=== PATIENT | male | born 1940 | race Caucasian/White ===

== ENCOUNTER 2017-03-02 15:21 | Inpatient (IN) | payer MEDICARE, OTHER ==
[~2017-03-02] VITALS: Ht 165.1 cm; Wt 90.7 kg
[2017-03-02] MEDS ORDERED: IPRATROPIUM NEB FS 0.5 MG/2.5 ML AMPUL.NEB NEB ONE (15:30)
[2017-03-02] MEDS ORDERED: ALBUTEROL FS 2.5 MG/3 ML VIAL.NEB CONTNEB ONE (15:30)
[2017-03-02] MEDS ORDERED: methylPREDNISolone SOD SUCC 125 MG/2ML VIAL IV ONE (15:30)
--- NOTE | 2017-03-02 15:30 | NUR ---
PATIENT BIB RA FROM HOME C/O WORSENING SOB SINCE THIS AM. RECEIVED BREATHING TREATMENT ON ROUTE. PATIENT IS A/OX 4. SHORT OF BREATH, WHEEZING HEARD ON AUSCULTATION. PATIENTS VITALS REMAIN STABLE, O2 SATURATION 96% CURRENTLY. SAFETY AND COMFORT MEASURES IN PLACE. AWAITING MD ORDERS.
[2017-03-02] MEDS ORDERED: methylPREDNISolone SOD SUCC 125 MG/2ML VIAL ONE (15:43)
--- NOTE | 2017-03-02 15:45 | NUR ---
NEW IV STARTED RIGHT WRIST, 20 G.
[2017-03-02] MEDS ORDERED: IPRATROPIUM NEB FS 0.5 MG/2.5 ML AMPUL.NEB ONE (15:50)
[2017-03-02] MEDS ORDERED: ALBUTEROL FS 2.5 MG/3 ML VIAL.NEB ONE (15:50)
[2017-03-02 15:56] LABS: CALCIUM, SERUM 8.9 mg/dL (8.5-10.1); CARBON DIOXIDE 31 mmol/L (21-32); CHLORIDE 98 mmol/L (98-107); GLUCOSE 93 mg/dL (74-106); POTASSIUM 4.3 mmol/L (3.5-5.1); SODIUM SERUM 135 mmol/L (136-145); UREA NITROGEN, BLOOD 10 mg/dL (7-18)
[2017-03-02 16:02] LABS: ALANINE AMINOTRANSFERASE 20 U/L (12-78); ALBUMIN 3.8 g/dL (3.4-5.0); ALKALINE PHOSPHATASE 82 U/L (46-116); ASPARTATE AMINOTRANSFERASE 24 U/L (15-37); BILIRUBIN,DIRECT 0.1 mg/dL (0.0-0.2); BILIRUBIN,TOTAL 0.5 mg/dL (0.2-1.0); TOTAL PROTEIN, SERUM 7.7 g/dL (6.4-8.2)
[2017-03-02] MEDS ORDERED: Magnesium 1GM/D5W 100ML PREMIX 200 ML IV ONE ×2 (16:29→16:35)
--- NOTE | 2017-03-02 16:30 | NUR ---
PT GOING TO TELE 308-2
[2017-03-02 16:34] LABS: BASOPHILS # (AUTO) 0.1 /CMM (0.0-0.2); BASOPHILS % (AUTO) 0.6 % (0.0-2.0); HEMATOCRIT 35 % (39-51); HEMOGLOBIN 11.5 g/dL (13.5-17.5); LYMPHOCYTES # (AUTO) 1.9 /CMM (0.8-4.8); LYMPHOCYTES % (AUTO) 17.9 % (20.0-44.0); MEAN CORPUSCULAR HEMOGLOBIN 28 PG (26.0-33.0); MEAN CORPUSCULAR HGB CONC 32 g/dl (31.0-36.0); MEAN CORPUSCULAR VOLUME 86 fL (80-96); MONOCYTES # (AUTO) 1.2 /CMM (0.1-1.30); MONOCYTES % (AUTO) 11.5 % (2.0-12.0); NEUTROPHILS # (AUTO) 3.6 /CMM (1.8-8.9); PLATELET COUNT (AUTO) 285 /CMM (150-450); RDW COEFFICIENT OF VARIATION 14.7 (11.5-15.0); RED BLOOD CELL COUNT(AUTO) 4.14 MIL/uL (4.5-6.0); WHITE BLOOD COUNT (AUTO) 10.8 K/uL (4.3-11.0)
--- NOTE | 2017-03-02 16:42 | NUR ---
PER DR. FOFANA, RUN 2 BAGS OF MAGNESIUM OVER 30 MINUTES.
[2017-03-02 16:51] LABS: BAND % (MANUAL) 3 % (0.0-5.0); EOSINOPHILS % (MANUAL) 34 % (0-4); LYMPHOCYTES % (MANUAL) 21 % (16-48); MONOCYTES % (MANUAL) 10 % (0-11.0); NEUTROPHILS % (MANUAL) 32 (42-76)
--- NOTE | 2017-03-02 17:00 | NUR ---
[facility] PAGED, LEAD COATER
--- NOTE | 2017-03-02 17:18 | NUR ---
REOPRT GIVEN TO BHAVANA NAYLOR FOR ADMISSION.
[2017-03-02] MEDS ORDERED: ACETAMINOPHEN ES 500 MG TABLET PO ONE (17:30)
[2017-03-02] MEDS ORDERED: ACETAMINOPHEN ES 500 MG TABLET ONE (17:34)
--- NOTE | 2017-03-02 17:42 | NUR ---
PT TRANSFERRED TO TELEMETRY UNIT IN STABLE CONDITION VIA ACLS PROTOCOL
--- NOTE | 2017-03-02 17:45 | NUR ---
FIRST MATE OPENING RECEIVED PATIENT A/OX4 SLOVENIAN SPEAKING ONLY. TRANSLATION ASSISTED BY ONEAL VALENCIA. PATIENT DENIES SOB AT THIS TIME DURING REST, NO PAIN. RESPIRATIONS EQUAL AND UNLABORED. ALL NEEDS IN REACH. BED LOWERED AND LOCKED, RAILS UPX3 FOR SAFETY AND WILL ROUND Q2H OR LESS PER NEEDS
[2017-03-02 17:50] VITALS: BP 151/76
[2017-03-02] MEDS: PANTOPRAZOLE 40 MG TABLET.DR PO SCH (18:30)
[2017-03-02] MEDS: methylPREDNISolone SOD SUCC 125 MG/2ML VIAL IV SCH (18:30)
[2017-03-02] MEDS ORDERED: ONDANSETRON HCL/PF 4 MG/2 ML VIAL IVP PRN (18:30)
--- NOTE | 2017-03-02 18:30 | NUR ---
APPRENTICE COSMETOLOGIST NOTES CALLED [place] [phone] AND SHE STATED SHE WILL BRING PATIENT HOME MEDICATIONS TOMORROW AM. MD AWARE AND AT BEDSIDE
--- NOTE | 2017-03-02 18:34 | NUR ---
HOGSHEAD FILLER NOTES NOTIFIED MD PATIENT RECEIVED SOLU MEDROL IN ER 2 HOURS AGO. PER MD OK SKIP THIS DOSE OF SOLUMEDROL AND OK TO CONTINUE PROTONIX IN AM
--- NOTE | 2017-03-02 18:57 | NUR ---
BEAM PRESS OPERATOR NOTES PATIENT TELE NSR
--- NOTE | 2017-03-02 19:30 | NUR ---
DIRECTOR OF PHOTOGRAPHY INITIAL NOTE RECEIVED PT AWAKE AND ALERT, ORIENTED X3, JORDANIAN SPEAKING, NO COMPLAINT OF PAIN OR RESPIRATORY DISTRESS NOTED DURING PHYSICAL ASSESSMENT, PT IS STABLE, CLEAN/DRY AND COMFORTABLE, SAFETY MEASURES WILL BE MAINTAINED AT ALL TIMES, NEEDS WILL BE ANTICIPATED AND ATTENDED TO PROMPTLY.
[2017-03-02] MEDS: ALBUTEROL FS 2.5 MG/0.5 ML VIAL.NEB NEB SCH (19:51)
[2017-03-02] MEDS: IPRATROPIUM NEB FS 0.5 MG/2.5 ML AMPUL.NEB NEB SCH (19:51)
[2017-03-02] MEDS: CEFTRIAXONE 1 G in IV D5W 50 ML IV SCH (19:58)
[2017-03-02 20:00] VITALS: BP 137/71
[2017-03-02] MEDS: AZITHROMYCIN 500 MG in IV D5W 250 ML IV SCH (20:27)
[2017-03-03] VITALS: BP 139/74
[2017-03-03] MEDS ORDERED: GUAIFENESIN/D-METHORPHAN HB 5 ML UDC ONE (00:13)
[2017-03-03] MEDS: GUAIFENESIN/D-METHORPHAN HB 5 ML UDC PO PRN ×3 (00:17→20:05)
[2017-03-03] MEDS: IPRATROPIUM NEB FS 0.5 MG/2.5 ML AMPUL.NEB NEB SCH ×4 (01:38→20:20)
[2017-03-03] MEDS: ALBUTEROL FS 2.5 MG/0.5 ML VIAL.NEB NEB SCH ×4 (01:38→20:20)
[2017-03-03 04:00] VITALS: BP 141/82
[2017-03-03 06:30] LABS: BASOPHILS % (AUTO) 0.5 % (0.0-2.0); EOSINOPHILS # (AUTO) 0.1 /CMM (0.0-0.7); HEMATOCRIT 34 % (39-51); HEMOGLOBIN 11.3 g/dL (13.5-17.5); LYMPHOCYTES # (AUTO) 1.1 /CMM (0.8-4.8); LYMPHOCYTES % (AUTO) 16.8 % (20.0-44.0); MEAN CORPUSCULAR HEMOGLOBIN 28 PG (26.0-33.0); MEAN CORPUSCULAR HGB CONC 33 g/dl (31.0-36.0); MEAN CORPUSCULAR VOLUME 85 fL (80-96); MONOCYTES # (AUTO) 0.2 /CMM (0.1-1.30); MONOCYTES % (AUTO) 3.7 % (2.0-12.0); PLATELET COUNT (AUTO) 280 /CMM (150-450); RDW COEFFICIENT OF VARIATION 14.6 (11.5-15.0); RED BLOOD CELL COUNT(AUTO) 4.03 MIL/uL (4.5-6.0); WHITE BLOOD COUNT (AUTO) 6.4 K/uL (4.3-11.0)
--- NOTE | 2017-03-03 06:34 | NUR ---
CURTAIN HEMMER AUTOMATIC CLOSING PT REMAINED STABLE DURING SHELTER SUPERVISOR, NO SIGNIFICANT CHANGE OF CONDITION NOTED, WILL ENDORSE TO AM SHIFT FOR LADAN.
[2017-03-03 06:48] LABS: ALANINE AMINOTRANSFERASE 22 U/L (12-78); ALBUMIN 3.6 g/dL (3.4-5.0); ALKALINE PHOSPHATASE 73 U/L (46-116); ASPARTATE AMINOTRANSFERASE 20 U/L (15-37); BILIRUBIN,TOTAL 0.4 mg/dL (0.2-1.0); CARBON DIOXIDE 26 mmol/L (21-32); CHLORIDE 98 mmol/L (98-107); GLUCOSE 132 mg/dL (74-106); POTASSIUM 4.2 mmol/L (3.5-5.1); SODIUM SERUM 135 mmol/L (136-145); TOTAL PROTEIN, SERUM 7.7 g/dL (6.4-8.2); UREA NITROGEN, BLOOD 10 mg/dL (7-18)
--- NOTE | 2017-03-03 07:40 | NUR ---
CASH PROCESSOR OPENING NOTE PATIENT IS ALERT AND ORIENTED x4. NO PAIN AT THIS TIME. NO SOB OR DISTRESS NOTED. CALL LIGHT WITHIN REACH. SAFETY MEASURES IMPLEMENTED. ABLE TO COMMUNICATE NEEDS, VIETNAMESE SPEAKING. ON 2L/MIN OF OXYGEN VIA NASAL CANNULA. HAS SMALL COUGH, MEDICATION GIVEN. WILL CONTINUE TO MONITOR
[2017-03-03 08:00] VITALS: BP 140/80
[2017-03-03] MEDS: methylPREDNISolone SOD SUCC 125 MG/2ML VIAL IV SCH ×3 (09:09→17:06)
[2017-03-03] MEDS: PANTOPRAZOLE 40 MG TABLET.DR PO SCH (09:09)
[2017-03-03 12:00] VITALS: BP 131/71
[2017-03-03] MEDS ORDERED: FLUT1DIS3 IH (14:01)
[2017-03-03] MEDS ORDERED: LEVO50TA8 PO (14:01)
[2017-03-03] MEDS ORDERED: THEO200T20 PO (14:01)
[2017-03-03] MEDS ORDERED: CARV6.252 PO (14:01)
[2017-03-03] MEDS ORDERED: ALBU2.5V38 IH (14:01)
[2017-03-03] MEDS ORDERED: ASPI-991 PO (14:01)
[2017-03-03 16:00] VITALS: BP 134/81
[2017-03-03] MEDS: LACTOBACILLUS RHAMNOSUS GG 1 EACH CAP.SPRINK PO SCH (17:00)
--- NOTE | 2017-03-03 18:47 | NUR ---
MEDICAL APPOINTMENT CLERK CLOSING NOTE PATIENT IS ALERT AND ORIENTED x3. NO PAIN AT THIS TIME. NO SOB OR DISTRESS NOTED. CALL LIGHT WITHIN REACH AT ALL TIMES. SAFETY MEASURES IMPLEMENTED. ABLE TO COMMUNICATE NEEDS. HAITIAN SPEAKING. ALL DUE MEDICATIONS GIVEN ORDERED. ON 2L.MIN OF OXYGEN VIA NASAL CANNULA. AMBULATORY WITH ASSISTANCE. POSSIBLE DISCHARGE IN AM. WILL ENDORSE TO OUTSIDE SALES EXECUTIVE NURSE
--- NOTE | 2017-03-03 19:30 | NUR ---
MARITIME PILOT OPENING NOTES: PATIENT ON BED, AOX3, TAJIK SPEAKING, ON O2 AT 2 LPM VIA NC, BREATHING EVEN AND UNLABORED, BUT SLIGHT WHEEZING AUSCULTATED OVER UPPER LUNG FRENCH. PATIENT DENIES ANY SOB OR DIFFICULTY BREATHING. OCCASIONAL COUGH NOTED. ON TELE MONITORING WITH SINUS RHYTHM AT RATE OF 80S. PIV OVER R WRIST G 20 INTACT AND PATENT TO FLUSH. PROVIDED FOR COMFORT AND SAFETY. ELEVATED HOB. WILL CONT TO MONITOR.
[2017-03-03 20:00] VITALS: BP 133/81
[2017-03-03] MEDS: CEFTRIAXONE 1 G in IV D5W 50 ML IV SCH (20:05)
--- NOTE | 2017-03-03 20:10 | NUR ---
RN NOTES: ADMINISTERED ROBITUSSIN PO FOR COUGH.
[2017-03-03] MEDS: AZITHROMYCIN 500 MG in IV D5W 250 ML IV SCH (21:07)
--- NOTE | 2017-03-03 22:30 | NUR ---
RN NOTES: PATIENT COMPLAINED OF PAIN OVER R WRIST PIV. NO SWELLING NOTED, WITH BLOOD RETURN NOTED. D'AMAN LINE AND REINSERTED NEW PIV OVER LAC G22. WILL CONT TO MONITOR.
[2017-03-04] VITALS: BP 144/96
[2017-03-04] MEDS: ALBUTEROL FS 2.5 MG/0.5 ML VIAL.NEB NEB SCH ×2 (01:01→08:42)
[2017-03-04] MEDS: IPRATROPIUM NEB FS 0.5 MG/2.5 ML AMPUL.NEB NEB SCH ×2 (01:01→08:42)
[2017-03-04 04:00] VITALS: BP 142/76
--- NOTE | 2017-03-04 07:00 | NUR ---
CCTV TECHNICIAN CLOSING NOTES: PATIENT IN BED, AOX3, ON O2 AT 2 LPM VIA NC, STILL NOTED TO HAVE SLIGHT WHEEZING, BUT WITHOUT ANY SOB. NO ACUTE CHANGE IN CONDITION NOTED THROUGH SHIFT. DUE MEDS GIVEN. PROVIDED FOR COMFORT AND SAFETY. ENDORSED TO AM RN , [place], FOR LADAN.
[2017-03-04 07:12] VITALS: BP 149/86
--- NOTE | 2017-03-04 07:45 | NUR ---
JIRA ADMINISTRATOR OPENING NOTE PATIENT IS ALERT AND ORIENTEDx3. NO PAIN AT THIS TIME. NO SOB OR DISTRESS NOTED. CALL LIGHT WITHIN REACH. SAFETY MEASURES IMPLEMENTED. ABLE TO COMMUNICATE NEEDS, THAI SPEAKING. IV INTACT AND PATENT NO REDNESS OR SWELLING NOTED. POSSIBLE DISCHARGE TODAY. WILL CONTINUE TO MONITOR.
[2017-03-04] MEDS: methylPREDNISolone SOD SUCC 125 MG/2ML VIAL IV SCH (08:05)
[2017-03-04] MEDS: PANTOPRAZOLE 40 MG TABLET.DR PO SCH (08:05)
[2017-03-04] MEDS: LACTOBACILLUS RHAMNOSUS GG 1 EACH CAP.SPRINK PO SCH (08:05)
--- NOTE | 2017-03-04 08:49 | NUR ---
CHARGE NOTES PER DR. ESTEVAN MANZO TELEMETRY.
--- NOTE | 2017-03-04 11:34 | NUR ---
MS FAMILY SUPPORT SPECIALIST NOTE PATIENT IS ALERT AND ORIENTED x3. NO PAIN AT THIS TIME. NO SOB OR DISTRESS NOTED. CALL LIGHT WITHIN REACH AT ALL TIMES. SAFETY MEASURES IMPLEMENTED. IV REMOVED, SKIN INTACT. ALL BELONGINGS WITH PATIENT. DISCHARGE INSTRUCTIONS AND PRESCRIPTION GIVEN TO PATIENT, PATIENT RETURNED VERBAL UNDERSTANDING. LEFT VIA TAXI. INFORMED [place] ABOUT DISCHARGE TO HOME.
== END 2017-03-04 11:35 | disposition home or self-care (01) | DRG 189 ==
LOC: ER 15:23 → TELE 16:51 → MED 03-04 11:15
PROVIDERS: ADMIT Internal Medicine; ATTEND Internal Medicine
DX: J96.01 Acute respiratory failure with hypoxia (principal); J15.9 Unspecified bacterial pneumonia; J45.901 Unspecified asthma with (acute) exacerbation; J44.0 Chronic obstructive pulmonary disease with (acute) lower respiratory infection; E66.9 Obesity, unspecified; I10 Essential (primary) hypertension; Z87.891 Personal history of nicotine dependence; Z68.33 Body mass index [BMI] 33.0-33.9, adult
CPT/HCPCS: 36415; 71010-TC; 80048-TC; 80053-TC; 80076-TC; 85025-TC; 87081-TC; 94799-TC; A4606; J0456; J0696; J2930; J3475; J7050; J7060; Z7610

== ENCOUNTER 2017-04-24 16:29 | Inpatient (IN) | payer OTHER ==
[~2017-04-24] VITALS: Ht 175.3 cm; Wt 81.4 kg
[~2017-04-24 16:29] MED LIST: ALBU2.5V38 IH; ASPI-991 PO; CARV6.252 PO; FLUT1DIS3 IH; LEVO50TA8 PO; THEO200T20 PO
--- NOTE | 2017-04-24 16:32 | NUR ---
PT BIBRA FROM HOME TO ER BED 11 C/O RLQ ABDOMINAL PAIN X 2 DAYS, WORST TODAY. PT DENIES CHEST PAIN. SOB, WHEEZING NOTED. GOWNED AND PLACED ON MONITOR. AWAITING MD CORTES.
--- NOTE | 2017-04-24 16:54 | NUR ---
DR FOX AT BEDSIDE FOR EVAL.
--- NOTE | 2017-04-24 17:03 | NUR ---
IV LINE STARTED BLOOD DRAWN AND SENT TO LAB.
--- NOTE | 2017-04-24 17:10 | NUR ---
RT AT BEDSIDE FOR BREATHING TREATMENT.
[2017-04-24 17:11] LABS: EOSINOPHILS # (AUTO) 0.1 /CMM (0.0-0.7); EOSINOPHILS % (AUTO) 0.4 % (0.0-6.0); HEMATOCRIT 38 % (39-51); HEMOGLOBIN 12.1 g/dL (13.5-17.5); LYMPHOCYTES # (AUTO) 0.6 /CMM (0.8-4.8); LYMPHOCYTES % (AUTO) 3.1 % (20.0-44.0); MEAN CORPUSCULAR HEMOGLOBIN 26 PG (26.0-33.0); MEAN CORPUSCULAR HGB CONC 32 g/dl (31.0-36.0); MEAN CORPUSCULAR VOLUME 82 fL (80-96); MONOCYTES # (AUTO) 0.7 /CMM (0.1-1.30); MONOCYTES % (AUTO) 3.7 % (2.0-12.0); NEUTROPHILS # (AUTO) 18.3 /CMM (1.8-8.9); NEUTROPHILS % (AUTO) 92.8 % (43.0-81.0); PLATELET COUNT (AUTO) 314 /CMM (150-450); RDW COEFFICIENT OF VARIATION 17.4 (11.5-15.0); RED BLOOD CELL COUNT(AUTO) 4.65 MIL/uL (4.5-6.0); WHITE BLOOD COUNT (AUTO) 19.8 K/uL (4.3-11.0)
[2017-04-24 17:25] LABS: CALCIUM, SERUM 8.3 mg/dL (8.5-10.1); CARBON DIOXIDE 33 mmol/L (21-32); CHLORIDE 89 mmol/L (98-107); CREATININE 1.1 mg/dL (0.6-1.3); GLUCOSE 272 mg/dL (74-106); POTASSIUM 3.4 mmol/L (3.5-5.1); SODIUM SERUM 131 mmol/L (136-145); UREA NITROGEN, BLOOD 22 mg/dL (7-18)
[2017-04-24 17:26] LABS: TROPONIN I 0.112 ng/mL (0.00-0.056)
[2017-04-24 17:30] LABS: ALANINE AMINOTRANSFERASE 44 U/L (12-78); ALBUMIN 2.8 g/dL (3.4-5.0); ALKALINE PHOSPHATASE 70 U/L (46-116); ASPARTATE AMINOTRANSFERASE 29 U/L (15-37); BILIRUBIN,DIRECT 0.2 mg/dL (0.0-0.2); BILIRUBIN,TOTAL 0.6 mg/dL (0.2-1.0); LIPASE 155 U/L (73-393); TOTAL PROTEIN, SERUM 6.6 g/dL (6.4-8.2)
--- NOTE | 2017-04-24 17:30 | NUR ---
PT TO RADIOLOGY FOR CT ABDOMEN
[2017-04-24 18:11] LABS: APPEARANCE,URINE Clear (CLEAR); BILIRUBIN,URINE Negative (NEGATIVE); BLOOD, URINE Trace-intact Ery/uL (NEGATIVE); COLOR,URINE Yellow (YELLOW); KETONES,URINE Negative (NEGATIVE); LEUKOCYTE ESTERASE ,URINE Negative (NEGATIVE); NITRITE, URINE Negative (NEGATIVE); PROTEIN,URINE Negative (NEGATIVE); UGLUCOSE Negative (NEGATIVE); UROBILINOGEN,URINE 0.2 EU/dL (0.2)
[2017-04-24 18:31] LABS: BACTERIA,URINE None seen /HPF (None Seen); RBC,URINE 0-2 /HPF (0-2); SQUAMOUS EPITHELIAL CELL,UR Few /HPF (None Seen); WBC,URINE 0-2 /HPF (0-3)
--- NOTE | 2017-04-24 19:06 | NUR ---
CALLED PATIENTS ANGEL BOYLE- [phone]
[2017-04-24] MEDS ORDERED: PRED10TA PO (19:09)
[2017-04-24] MEDS ORDERED: SIMV20TA6 PO (19:09)
[2017-04-24] MEDS ORDERED: FURO40TA5 PO (19:09)
--- NOTE | 2017-04-24 19:25 | NUR ---
CALLED [employer] STAFF RADIOLOGIST WAS PAGED.
--- NOTE | 2017-04-24 20:11 | NUR ---
TELE BED 313-2
--- NOTE | 2017-04-24 20:35 | NUR ---
REPORT GIVEN TO TELE NURSE CORY. PENDING TRANSFER.
[2017-04-24 20:45] VITALS: BP 133/74
--- NOTE | 2017-04-24 21:30 | NUR ---
RN NOTES NON ADMINISTRATION OF IV ATB'S DUE AT 2130 GIVEN AT E.R PRIOR TO ADMISSION IN TELEMETRY UNIT SPOKE TO DR. MANDY ESPARZA AND CLARIFIED ABOUT IT. CONFIRMED AND IV ATB WILL START ON 04/25/2017
[2017-04-24 22:21] LABS: IRON, SERUM 60 ug/dl (50-175); TOTAL IRON BINDING CAPACITY 373 ug/dl (250-450)
[2017-04-25] VITALS: BP 107/55
--- NOTE | 2017-04-25 01:27 | NUR ---
MS RN OPENING NOTES RECEIVE FROM E.R SERVICES VIA [facility] PROTOCOL PATIENT A/OX 4, ON 2LPM VIA MD 02 SAT AT 96% NO S/S OF DISTRESS OR SOB, PATIENT NO COMPLAIN OF PAIN AT THIS TIME, WILL CONTINUE TO MONITOR FOR PATIENT. HEAD TO TOE ASSESSMENT IS DONE, ATTACH TO TELE MONITOR, SAFETY MEASURES IN PLACE, ON LOW BED TO ENSURE SAFETY. CALL LIGHT WITHIN REACH. WILL CONTINUE TO MONITOR.
[2017-04-25 04:00] VITALS: BP_SYST 105; BP_DIAS 44; BP_DIAS 74
--- NOTE | 2017-04-25 06:38 | NUR ---
DERMATOLOGY PHYSICIAN CLOSING NOTES PATIENT COMFORTABLY ASLEEP AND EASILY AWAKEN, HEAD OF BED ELEVATED FOR BETTER LUNG EXPANSION AND GOOD CIRCULATION. ON 2LPM VIA NC 02 SAT AT 95% RESPIRATIONS EVEN AND UNLABORED, L HAND 20 G PATENT AND INTACT WITH NO S/S OF INFILTRATION NOTED. APPEARS NOT IN DISTRESS. IN STABLE CONDITION, NO COMPLAINS OF PAIN AT THIS TIME. FREQUENT VISUAL CHECK DONE FOR SAFETY EVERY 2 HOURS. NURSING CARE RENDERED, NEEDS ATTENDED AND ANTICIPATED, KEPT CLEAN AND DRY AND COMFORTABLE, GOOD SKIN CARE PROVIDED. OFFLOAD AT ALL TIMES. SAFE HAZARD FREE ENVIRONMENT PROVIDED. CALL LIGHT WITHIN EASY TO REACH, ON LOW BED AT ALL TIMES TO ENSURE SAFETY, WILL ENDORSE TO THE NEXT SHIFT CONTINUE PLAN OF CARE
[2017-04-25 07:10] VITALS: BP 112/53
--- NOTE | 2017-04-25 07:30 | NUR ---
AM RN NOTE Received patient sleeping comfortably in his bed no acute distress noted. On O2 2L/min via NC. Resp even and non-labored. On tele monitor, SR. IV site intact and patent. On NPO status for HIDA scan today. Bed in low locked position. Will continue to monitor.
[2017-04-25 07:33] LABS: HEMATOCRIT 36 % (39-51); HEMOGLOBIN 11.5 g/dL (13.5-17.5); LYMPHOCYTES # (AUTO) 0.8 /CMM (0.8-4.8); LYMPHOCYTES % (AUTO) 3.6 % (20.0-44.0); MEAN CORPUSCULAR HEMOGLOBIN 27 PG (26.0-33.0); MEAN CORPUSCULAR HGB CONC 32 g/dl (31.0-36.0); MEAN CORPUSCULAR VOLUME 83 fL (80-96); MONOCYTES # (AUTO) 0.5 /CMM (0.1-1.30); MONOCYTES % (AUTO) 2.5 % (2.0-12.0); NEUTROPHILS % (AUTO) 93.9 % (43.0-81.0); PLATELET COUNT (AUTO) 288 /CMM (150-450); RDW COEFFICIENT OF VARIATION 17.1 (11.5-15.0); RED BLOOD CELL COUNT(AUTO) 4.32 MIL/uL (4.5-6.0); WHITE BLOOD COUNT (AUTO) 21.3 K/uL (4.3-11.0)
[2017-04-25 08:00] VITALS: BP 112/53
--- NOTE | 2017-04-25 08:36 | NUR ---
AM RN NOTE Pt seen by Dr. Yanes (Clinical Nurse Manager) with new order to D/C telemetry and status changed to med-surg.
[2017-04-25 09:22] LABS: ALANINE AMINOTRANSFERASE 40 U/L (12-78); ALBUMIN 2.7 g/dL (3.4-5.0); ALKALINE PHOSPHATASE 56 U/L (46-116); ASPARTATE AMINOTRANSFERASE 21 U/L (15-37); BILIRUBIN,TOTAL 0.7 mg/dL (0.2-1.0); CALCIUM, SERUM 8.3 mg/dL (8.5-10.1); CARBON DIOXIDE 33 mmol/L (21-32); CHLORIDE 97 mmol/L (98-107); CREATININE 0.9 mg/dL (0.6-1.3); GLUCOSE 159 mg/dL (74-106); MAGNESIUM 2.1 mg/dL (1.8-2.4); PHOSPHORUS 4.3 mg/dL (2.5-4.9); SODIUM SERUM 137 mmol/L (136-145); TOTAL PROTEIN, SERUM 6.1 g/dL (6.4-8.2); UREA NITROGEN, BLOOD 19 mg/dL (7-18)
--- NOTE | 2017-04-25 09:42 | NUR ---
AM RN NOTE Patient awake, A/O X4 left for HIDA scan at this time as accompanied by Wilfred (Nuclear meds).
[2017-04-25 11:07] LABS: THYROID STIMULATING HORMONE 0.385 uIU/mL (0.358-3.74)
--- NOTE | 2017-04-25 12:00 | NUR ---
AM RN NOTE Pt came back from [facility] and department at this time.
--- NOTE | 2017-04-25 14:16 | NUR ---
AM RN NOTE Pt c/o abdominal pain 12/15. Called Ayaz BOWLING OR SKATING FRONT DESK CLERK made aware awaiting for new orders.
--- NOTE | 2017-04-25 15:04 | NUR ---
AM RN NOTE HIDA scan results seen by Ayaz CARROT HARVESTER with new orders to start clear liquid diet. Order placed.
[2017-04-25 16:00] VITALS: BP 129/69
--- NOTE | 2017-04-25 18:22 | NUR ---
AM RN NOTE Patient resting in his bed no acute distress noted. On O2 2L/min via NC. Ate dinner. Will endorse to next shift to get consent for joslynan as pt stated his family is coming to visit and place him on NPO status after midnight for Joslynan in am.
--- NOTE | 2017-04-25 19:30 | NUR ---
MS/RN OPENING NOTES PT RESTING IN BED, EASILY AROUSABLE TO NAME. ON 2LPM O2 VIA NC, BREATHING EVEN AND UNLABORED. NO S/S OF DISTRESS. CURRENTLY ON CLEAR LIQUID DIET, FOR NM STRESS TEST IN AM. IV TO LEFT HAND PATENT AND INTACT. BED IN LOW/LOCKED POSITION WITH CALL LIGHT IN REACH. SIDE RAILS UPX2. WILL CONTINUE TO MONITOR
[2017-04-25 20:00] VITALS: BP_SYST 105; BP_SYST 152; BP_DIAS 102; BP_DIAS 66
--- NOTE | 2017-04-25 20:00 | NUR ---
MS/RN NOTES CONSENTS SIGNED FOR LEXISCAN AND FLAGGED IN CHART. FAMILY MEMBERS CURRENTLY AT BEDSIDE.
--- NOTE | 2017-04-26 05:26 | NUR ---
MS/RN NOTES SPOKE TO DR. GALVAN REGARDING PT WHO BEGINS TO ASK FOR BREATHING TX 1-2HRS BEFORE NEXT SCHEDULED DOSE. ALSO HAS AGGRESSIVE COUGHING TO EXPECTORATE SECRETIONS. NO NEW ORDERS AT THIS TIME. JUST CONTINUE TO MONITOR
[2017-04-26 07:18] LABS: EOSINOPHILS # (AUTO) 0.7 /CMM (0.0-0.7); EOSINOPHILS % (AUTO) 2.3 % (0.0-6.0); HEMATOCRIT 39 % (39-51); HEMOGLOBIN 12.3 g/dL (13.5-17.5); LYMPHOCYTES # (AUTO) 1.1 /CMM (0.8-4.8); LYMPHOCYTES % (AUTO) 3.8 % (20.0-44.0); MEAN CORPUSCULAR HEMOGLOBIN 26 PG (26.0-33.0); MEAN CORPUSCULAR HGB CONC 32 g/dl (31.0-36.0); MEAN CORPUSCULAR VOLUME 83 fL (80-96); NEUTROPHILS # (AUTO) 24.3 /CMM (1.8-8.9); NEUTROPHILS % (AUTO) 86.9 % (43.0-81.0); PLATELET COUNT (AUTO) 296 /CMM (150-450); RDW COEFFICIENT OF VARIATION 16.7 (11.5-15.0); RED BLOOD CELL COUNT(AUTO) 4.68 MIL/uL (4.5-6.0)
--- NOTE | 2017-04-26 07:30 | NUR ---
MS RN OPENING RECEIVED PATIENT A/OX4 NPO FOR LEXISCAN THIS AM. PATIENT STATES NO NEEDS AT THIS TIME. ALL NEEDS IN REACH. PATIENT 99% ON 2LPM NC. EDUCATED PATIENT ON COPD AND OXYGENATION NEEDS. ROOM AIR 96% AND PATIENT STATES UNDERSTANDING. WILL ROUND Q2H OR LESS PER NEEDS. NO S/S SOB, DIFFICULTY BREATHING OR PAIN AT THIS TIME.
--- NOTE | 2017-04-26 07:34 | NUR ---
MS/RN CLOSING NOTES PT AWAKE, RESTING IN BED. ON 2LPM O2 VIA NC, BREATHING EVEN AND UNLABORED. IS NERVOUS ABOUT LEXISCAN THIS AM. KEPT NPO POST MIDNIGHT. CONSENTS SIGNED AND IN CHART. IV TO LEFT HAND PATENT AND INTACT. ALL NEEDS MET AND ATTENDED. MADE PT COMFORTABLE POSSIBLE THROUGHOUT SHIFT. BED IN LOW/LOCKED POSITION WITH CALL LIGHT IN REACH. SIDE RAILS UPX2. ENDORSED TO AM SHIFT LADAN.
[2017-04-26 07:45] LABS: CALCIUM, SERUM 8.6 mg/dL (8.5-10.1); CARBON DIOXIDE 38 mmol/L (21-32); CHLORIDE 93 mmol/L (98-107); CREATININE 0.9 mg/dL (0.6-1.3); GLUCOSE 96 mg/dL (74-106); MAGNESIUM 2.1 mg/dL (1.8-2.4); POTASSIUM 3.9 mmol/L (3.5-5.1); SODIUM SERUM 134 mmol/L (136-145); UREA NITROGEN, BLOOD 21 mg/dL (7-18)
[2017-04-26 08:00] VITALS: BP 120/60
--- NOTE | 2017-04-26 08:00 | NUR ---
MS RN NOTES CALLED AND SPOKE WITH BRIAN [facility] AND BRIAN CONFIRMED HE WILL SEE PATIENT BETWEEN 830-9AM
[2017-04-26 08:24] LABS: BAND % (MANUAL) 2 % (0.0-5.0); EOSINOPHILS % (MANUAL) 2 % (0-4); LYMPHOCYTES % (MANUAL) 6 % (16-48); MONOCYTES % (MANUAL) 9 % (0-11.0); NEUTROPHILS % (MANUAL) 81 (42-76)
[2017-04-26 08:51] VITALS: BP 120/60
--- NOTE | 2017-04-26 09:15 | NUR ---
MS RN NOTES PATIENT TAKEN DOWN FOR LEXISCAN
--- NOTE | 2017-04-26 09:19 | NUR ---
MS RN NOTES PATIENT C/O BEING ITCHY SINCE EARLY THIS AM. PER NAUN ORDER BENADRYL 25MG Q6H PRN IVP
--- NOTE | 2017-04-26 10:18 | NUR ---
ms rn notes Patient returned to floor unable to complete lexiscan per dr dwyer. manisha at bedside and updated on patient condition. per nilda patient started wheezing and had what appeared to be an asthma attack. per manisha he will order medications. order stat procalcitonin. called lab to notify. respiratory therapist at bedside
--- NOTE | 2017-04-26 10:28 | NUR ---
AROUND 929 SPOKE TO DAYDAY "RN" I TOLD HER THAT IM GONNA BUTADIENE CONVERTOR OPERATOR HER PT. FOR NUCLEAR MED AND SHE SAID, PT IS STABLE TO GO DOWN. DONT NEED THE O2.
--- NOTE | 2017-04-26 10:30 | NUR ---
10MG ALBUTEROL/1MG ATROVENT GIVEN PER NAUN ATKINS. Addendum: 04/26/17 at 1630 by SEYMOUR LEE RT Amended: Links added.
--- NOTE | 2017-04-26 10:37 | NUR ---
MS RN NOTES RT AT BEDSIDE. NAUN AT BEDSIDE. PATIENT SITTING UP LEANING FOWARD TO ASSIST WITH EASE OF BREATHING
[2017-04-26 10:46] LABS: ABG BASE EXCESS 10.1 mmol/L; ABG OXYGEN SATURATION 89.3 % (92.0-98.5); ABG PCO2 54.8 mmHg (35.0-45.0); ABG PH 7.437 (7.350-7.450); ABG PO2 56.6 mmHg (75.0-100.0); AaDO2 27.5 mmHg; COHb 1.3 % (0.5-1.5); MetHb 0.5 % (0.0-1.5); O2Hb 87.7 % (94.0-97.0); SITE, ABG Right Radial; VENT MODE, BG ROOM AIR
--- NOTE | 2017-04-26 12:00 | NUR ---
MS RN NOTES PATIENT STABLE AT THIS TIME. NO SOB, DIFFICULTY BREATHING AND TOLERATING ROOM AIR 95% AT THIS TIME. PATIENT FAMILY AND NAUN IN ROOM
--- NOTE | 2017-04-26 12:54 | NUR ---
MS RN NOTES CONFIRMED WITH NAUN ATKINS TO NOT GIVE 1300 DOSE OF SOLUMEDROL. NEXT DOSE IS 1700 AND CONTINUE TID SCHEDULE AT THAT TIME.
[2017-04-26 16:00] VITALS: BP 107/57
--- NOTE | 2017-04-26 19:09 | NUR ---
REGULAR SCHEDULED DOSE NOT GIVEN, BECAUSE CONT. TX ORDER PER NAUN APPLICATIONS ARCHITECT
--- NOTE | 2017-04-26 19:20 | NUR ---
MS/RN NOTES PT RECEIVED RESTING COMFORTABLY IN BED. ON 2LPM O2 VIA NC. DENIES SOB. NO WHEEZING NOTED. NO S/S OF DISTRESS. BREATHING IS EVEN AND UNLABORED. PT UNABLE TO COMPLETE LEXISCAN TODAY DUE TO SOB. IN STABLE CONDITION NOW. BED IN LOW/LOCKED POSITION, CALL LIGHT IN REACH, BED ALARM ON FOR SAFETY. WILL CONTINUE TO MONITOR
[2017-04-26 20:00] VITALS: BP 124/69
--- NOTE | 2017-04-26 20:15 | NUR ---
MS/RN NOTES FOLLOWED UP WITH PT FOR LOCATION OF PAIN, PER COLLISION MECHANIC PT HAVING PAIN 03/17. PT VERBALIZED HE WAS NOT HAVING ANY PAIN AT THIS TIME. RESTING COMFORTABLY IN BED. WILL CONTINUE TO MONITOR
--- NOTE | 2017-04-27 02:00 | NUR ---
MS/RN NOTES PT REQUESTING TO WALK AROUND THE UNIT. ACCOMPANIED PT WHO USED WALKER. PT TOLERATED WELL. COMPLETED 1 LAP AROUND UNIT. ASSISTED BACK TO BED.
--- NOTE | 2017-04-27 06:15 | NUR ---
MS/RN NOTES PT WALKED TO BATHROOM AND EXPRESSED THAT HE WAS FEELING DIZZY AND CONFUSED. STATED THAT HE FORGOT WHERE HE WAS AND HOW HE GOT HERE. REORIENTED PT AND ASSISTED TO SIT IN CHAIR. OFFERED WATER, PLACED BACK ON O2 AND RECHECKED VITAL SIGNS. ZE=869/74, PULSE=80, SPO2 96% ON 2LPM. DENIES PAIN, DENIES SOB. BREATHING EVEN AND UNLABORED. NO S/S OF DISTRESS NOTED. OFFERED SNACKS AND PT ATE A LITTLE BIT. ASSISTED PT TO CALL [place] [phone]. SHE WILL BE ON HER WAY. WILL STAY AT BEDSIDE TO MONITOR FOR IMPROVEMENT.
--- NOTE | 2017-04-27 07:05 | NUR ---
MS RN OPENING NOTES RECEIVED PT FROM NIGHTSHIFT NURSE IN STABLE CONDITION. PT IS A/O X4. NO SOB OR SIGNS OF DISTRESS NOTED. BREATHING IS EVEN AND UNLABORED. PT IS ON 1L O2 VIA NC AND SATING WELL @ 96%. IV PRESENT ON RIGHT AC 22G SL. IV IS PATENT AND INTACT. NO REDNESS OR SIGNS OF INFILTRATION NOTED. BED IN LOW LOCKED POSITION, SIDE RAILS UP X2, CALL LIGHT WITHIN REACH. WILL CONTINUE TO MONITOR.
[2017-04-27 07:11] LABS: EOSINOPHILS # (AUTO) 0.2 /CMM (0.0-0.7); EOSINOPHILS % (AUTO) 0.6 % (0.0-6.0); HEMATOCRIT 38 % (39-51); HEMOGLOBIN 12.1 g/dL (13.5-17.5); LYMPHOCYTES # (AUTO) 0.7 /CMM (0.8-4.8); LYMPHOCYTES % (AUTO) 2.5 % (20.0-44.0); MEAN CORPUSCULAR HEMOGLOBIN 26 PG (26.0-33.0); MEAN CORPUSCULAR HGB CONC 32 g/dl (31.0-36.0); MEAN CORPUSCULAR VOLUME 82 fL (80-96); MONOCYTES # (AUTO) 1.8 /CMM (0.1-1.30); MONOCYTES % (AUTO) 6.8 % (2.0-12.0); NEUTROPHILS # (AUTO) 24.2 /CMM (1.8-8.9); NEUTROPHILS % (AUTO) 90.1 % (43.0-81.0); PLATELET COUNT (AUTO) 255 /CMM (150-450); RDW COEFFICIENT OF VARIATION 16.9 (11.5-15.0); RED BLOOD CELL COUNT(AUTO) 4.62 MIL/uL (4.5-6.0); WHITE BLOOD COUNT (AUTO) 26.9 K/uL (4.3-11.0)
[2017-04-27 07:33] LABS: CALCIUM, SERUM 8.4 mg/dL (8.5-10.1); CARBON DIOXIDE 37 mmol/L (21-32); CHLORIDE 90 mmol/L (98-107); GLUCOSE 161 mg/dL (74-106); POTASSIUM 3.8 mmol/L (3.5-5.1); SODIUM SERUM 132 mmol/L (136-145); UREA NITROGEN, BLOOD 25 mg/dL (7-18)
--- NOTE | 2017-04-27 07:45 | NUR ---
MS/RN CLOSING NOTES PT SITTING UP IN BED, ACCOMPANIED BY HIS . PT STATES THAT HE FEELS BETTER ESPECIALLY NOW THAT HIS IS HERE. DOES NOT FEEL DIZZY AND BREATHING REMAINS ADEQUATE. IS NOW ON 1LPM O2 VIA NC. DENIES PAIN, SOB, BREATHING EVEN AND UNLABORED. IV TO RAC PATENT AND INTACT. BED IN LOW/LOCKED POSITION. ENDORSED TO AM SHIFT ABOUT SITUATION AND ABOUT LADAN.
[2017-04-27 08:00] VITALS: BP 148/75
[2017-04-27 09:01] LABS: LYMPHOCYTES % (MANUAL) 1 % (16-48); MONOCYTES % (MANUAL) 9 % (0-11.0); NEUTROPHILS % (MANUAL) 90 (42-76)
--- NOTE | 2017-04-27 13:26 | NUR ---
MS RN NOTES THE PT'S DAUGHTER CAME IN AND STATED THAT SHE WOULD LIKE TO TAKE HER FATHER HOME RATHER THAN HIM GOING TO SNF. [facility] WAS CALLED AND ASKED TO TALK TO THE PT ALONG WITH HIS FAMILY. FELI THE CHARGE ALSO TALKED TO THE PT AND HIS FAMILY. BOTH THE PT ALONG WITH HIS DAUGHTER AND AGREED TO PROCEED WITH THE SNF TRANSFER.
--- NOTE | 2017-04-27 13:39 | NUR ---
MS SELF DEFENSE INSTRUCTOR NOTES PT. REMAINS IN STABLE CONDITION. WILL GO TO [facility] SNF. REPORT GIVEN TO COURTNEY THE NURSING SENIOR MEDICAL DIRECTOR. ALL NEEDS WERE MET DURING SHIFT AND ORDERS CARRIED OUT ACCORDINGLY. ALL DISCHARGE PAPERWORK SIGNED BY THE PT/S [place] ORDERED BY THE PATIENT. ALL BELONGINGS SENT HOME WITH PT. BELONGINGS FORMED REVIEWED AND SIGNED. PT WAS SAFELY TRANSFERRED FROM BED IN [facility] AND LEFT VIA AMBULANCE TRANSPORT.
== END 2017-04-27 13:40 | DRG 871 ==
LOC: ER 16:31 → TELE 20:31 → MED 04-25 08:30
PROVIDERS: ADMIT Internal Medicine; ATTEND Internal Medicine
DX: A41.9 Sepsis, unspecified organism (principal); J15.9 Unspecified bacterial pneumonia; I21.4 Non-ST elevation (NSTEMI) myocardial infarction; J15.6 Pneumonia due to other Gram-negative bacteria; J96.11 Chronic respiratory failure with hypoxia; J96.12 Chronic respiratory failure with hypercapnia; R53.2 Functional quadriplegia; K80.10 Calculus of gallbladder with chronic cholecystitis without obstruction; J44.0 Chronic obstructive pulmonary disease with (acute) lower respiratory infection; J45.901 Unspecified asthma with (acute) exacerbation; J44.1 Chronic obstructive pulmonary disease with (acute) exacerbation; N28.1 Cyst of kidney, acquired; I10 Essential (primary) hypertension; Z79.82 Long term (current) use of aspirin; E03.9 Hypothyroidism, unspecified; E66.9 Obesity, unspecified; E78.5 Hyperlipidemia, unspecified; K57.30 Diverticulosis of large intestine without perforation or abscess without bleeding; K42.9 Umbilical hernia without obstruction or gangrene; K40.90 Unilateral inguinal hernia, without obstruction or gangrene, not specified as recurrent; Z90.49 Acquired absence of other specified parts of digestive tract; Z79.899 Other long term (current) drug therapy; N40.0 Benign prostatic hyperplasia without lower urinary tract symptoms; K27.9 Peptic ulcer, site unspecified, unspecified as acute or chronic, without hemorrhage or perforation; J20.9 Acute bronchitis, unspecified
CPT/HCPCS: 36415; 36600; 71010-TC; 71250-TC; 76700-TC; 78226; 80048-TC; 80053-TC; 80061-TC; 80076-TC; 81000-TC; 82803-TC; 83540-TC; 83690-TC; 83735-TC; 83880; 84100-TC; 84443-TC; 84484-TC; 85025-TC; 87040-TC; 87081-TC; 87086-TC; 93307-TC; 94799-TC; 97116-TC; 97530-TC; A4606; A9502; A9537; J0456; J0696; J1200; J2270; J2405; J2785; J2920; J2930; J7030; J7050; J7060; Z7610